=== PATIENT | female | born 1955 | race Caucasian/White ===

== ENCOUNTER 2022-05-02 08:49 | Day surgery (SDC) | payer OTHER ==
[2022-04-28 10:39] LABS: Absolute Lymphocytes (CBC) 1.9 K/uL (0.7-4.9); Hematocrit 40.2 % (36.0-45.0); Lymphocytes % 36.6 % (15.3-44.8); MCV 83.3 fL (80-100); MPV 6.9 fL (7.6-11.3); RBC Red Blood Cell Count 4.83 M/uL (3.86-4.86)
--- NOTE | 2022-04-28 10:52 | RAD REPORT ---
EXAM DESCRIPTION: Autumn Jett (2 Views)04/28/2022 10:29 am CLINICAL HISTORY: Preop for knee surgery COMPARISON: None FINDINGS: The lungs appear clear of acute infiltrate. The heart is normal size IMPRESSION: No acute abnormalities displayed
[2022-04-28 10:54] LABS: SARS-CoV-2 Antigen Rapid Res Negative (Negative)
[2022-04-28 10:56] LABS: Potassium 4.1 mmol/L (3.5-5.1); Protime INR 0.94
--- NOTE | 2022-04-28 16:07 | EKG ---
Test Date: 2022-04-28 Test Time: 10:21:25 Plate Straightener: WALI MEASUREMENT RESULTS: Intervals: Rate: 54 [place]: 168 QRSD: 92 QT: 450 QTc: 426 [place]: P: 52 [place]: 168 QRS: 77 T: 41 INTERPRETIVE STATEMENTS: Sinus bradycardia Otherwise normal ECG No previous ECG available for comparison Electronically Signed On 04-28-22 16:06:49 CDT by Ed Santos
[2022-05-02] MEDS ORDERED: CEFAZOLIN SODIUM 1 GM/VIAL ONE (09:03)
[2022-05-02] MEDS ORDERED: Ringers Lactate 1,000 ML IV ONE (09:03)
[2022-05-02] MEDS ORDERED: FENTANYL CITR 100 MCG/2 ML ONE (10:18)
[2022-05-02] MEDS ORDERED: propofoL 200 MG/20 ML VIAL IV ONE (10:18)
[2022-05-02] MEDS ORDERED: ONDANSETRON 4 MG/2 ML VIAL ONE (10:19)
[2022-05-02] MEDS ORDERED: MIDAZOLAM HCL 2 MG/2 ML INJ ONE (10:19)
[2022-05-02] MEDS ORDERED: LIDOCAINE 2% MPF 5 ML VIAL ONE (10:19)
[2022-05-02] MEDS ORDERED: dexAMETHasone 4 MG/ML VIAL ONE (10:46)
[2022-05-02] MEDS ORDERED: BUPIVACAINE 0.25% PF 10 ML VIAL SQ ONE ×2 (10:58→11:13)
[2022-05-02] MEDS ORDERED: KETOROLAC 30 MG/ML INJ ONE (11:24)
--- NOTE | 2022-05-02 11:27 | P.BOP ---
Preoperative diagnosis: right knee medial meniscus tear, chondromalacia medial femoral condyle Postoperative diagnosis: same Primary procedure: right knee arthroscopic partial medial meniscectomy Press Operator Automatic: NONE,NONE Estimated blood loss: 5 cc Specimen: none Findings: see dictation Anesthesia: General Complications: None Implants: none Fluids & blood products: per anesthesia record; TT: 21 mins @ 300 mmHg Transferred to: Recovery Room Condition: Good
[2022-05-02] MEDS ORDERED: HYDROMORPHONE HCL 1 MG/ML INJ ONE (11:54)
[2022-05-02 12:02] VITALS: O2SAT 100
[2022-05-02] MEDS ORDERED: HYDROCODONE/APAP 5/325 MG TAB ONE (12:15)
[2022-05-02 13:02] VITALS: BP 125/89; TEMP 97.8
--- NOTE | 2022-05-04 22:11 | OP ---
Date of Procedure: 05/02/2022 Surgeon: Benito Bright MD Preoperative Diagnoses: 1.Right knee medial meniscus tear. 2.Right knee chondromalacia, medial femoral condyle. Postoperative Diagnoses: 1.Right knee medial meniscus tear. 2.Right knee chondromalacia, medial femoral condyle. Procedure Performed: Right knee arthroscopic partial medial meniscectomy. Anesthesia: General LMA. Fluids: Per Anesthesia record. Estimated Blood Loss: 5 cc. Complications: None. Implants: None. Tourniquet Time: 21 minute at 300 mmHg. Indication For Procedure: Alecia is a 67-year-old female who presented to my clinic with signs and s ymptoms, and MRI findings consistent with right knee medial meniscus tear/osteoarthritis. I discusse d with the patient at length the diagnosis as well as treatment plan. Given her pain and mechanical symptoms, we will proceed with right knee arthroscopic partial medial meniscectomy. We discussed the possibility of some continued symptoms in the future from osteoarthritis, which we would proceed wit h injections as needed. Description Of Procedure: After informed consent was obtained, the patient was identified in the pre operative holding area and the right lower extremity was marked. The patient was then brought back t o the operating room, transferred to the operating table in a supine fashion, and placed under genera l LMA anesthesia. The right lower extremity was then prepped and draped in the usual sterile fashion . A time-out was initiated. The correct patient and procedure were confirmed and identified. The p atient did receive preoperative prophylactic antibiotics. The right lower extremity was examined usi ng an Esmarch and the tourniquet was inflated at 300 mmHg. Standard anteriorly, medial, and anterola teral portals were created. Arthroscope was brought in via the anterolateral portal and a diagnostic arthroscopy was performed. The patient was noted to have some grade 3 and grade 4 chondromalacia ch anges of the medial femoral condyle approximately 5 x 6 mm in measurement. There was some grade 2 ch ondromalacia changes noted within the patellofemoral groove, patellofemoral joint. No loose bodies w ere found within the medial and lateral gutter. [facility] The patient was noted to have a complex tear of the posterior horn of the medial meniscus. A partial medial meniscectomy was performed using an arthroscopic shaver. Meniscal biters were used to smooth meniscal borders. There were no loose chondral flaps noted. The ACL and PCL were noted to be intact and stable to probe once the arthroscope was brought into the intercondylar notch. The ar throscope was then brought in the lateral compartment where the patient was noted to have a loose cho ndral fragment that was floating within the joint. An arthroscopic shaver was then used to remove th e loose body, which was approximately 6 x 3 mm in size. No lateral meniscus tear was noted and no si gnificant chondromalacia noted at the lateral femoral condyle and lateral tibial plateau. Arthroscop ic instruments were then removed without complication. The wound was then irrigated thoroughly with normal saline. Skin portals were approximated using 4-0 Monocryl. Sterile dressings were applied. Tourniquet was let down. The patient was awakened and transferred to the PACU in stable condition. Postoperative Plan: The patient may be weightbearing as tolerated on her right lower extremity. She will follow up in the clinic in one week for wound check and dressing change. KIARA/AZUL Voice ID: [id number] Report ID: [id number]
== END 2022-05-02 12:41 | disposition home or self-care (01) ==
LOC: OR 08:49
PROVIDERS: ATTEND Orthopaedic Surgery Sports Medicine
PROC: 0SBC4ZZ Excision of Right Knee Joint, Percutaneous Endoscopic Approach (ICD-10-PCS; principal; 2022-05-02 10:30)
DX: S83.241A Other tear of medial meniscus, current injury, right knee, initial encounter (principal); M94.261 Chondromalacia, right knee; M17.11 Unilateral primary osteoarthritis, right knee; M25.561 Pain in right knee; Z20.822 Contact with and (suspected) exposure to COVID-19
CPT/HCPCS: 93005; 85025; 80048; 36415; 85610; 85730; 71046; 87811; 29881; J2704; J1100; J2001; J2250; J3010; J1170; J7120; J2405; J0690